=== PATIENT | male | born 1955 | race African-American/Black ===

== ENCOUNTER → 2025-03-14 13:02 | Outpatient (REF) | payer OTHER, SELFPAY | LOC: RAD 13:02 | PROVIDERS: ATTENDING PHYSICIAN Nurse Practitioner Adult Health; FAMILY PHYSICIAN Family Medicine | DX: Z43.1 Encounter for attention to gastrostomy (principal); R13.12 Dysphagia, oropharyngeal phase | CPT/HCPCS: 49465 ==

== ENCOUNTER 2025-03-25 13:07 | Emergency (ER) | payer OTHER, SELFPAY ==
--- NOTE | 2025-03-25 13:43 | EDRN ---
Pt was supposed to go to GI office in [place] and since here Maria Ambriz w/ [facility] came over and given a 20 Fr GT w/ 20 Ml bulb at this time and attempting to replace G tube at this time.
[2025-03-25 13:45] VITALS: BP 159/85
--- NOTE | 2025-03-25 13:46 | EDRN ---
Maria Ambriz FLOOR INSTALLATION MECHANIC unable to replace G tube so Fabiana AVILA attempting to get an appt w/ [facility].
--- NOTE | 2025-03-25 13:54 | CON.GI ---
Consultation
-
Date/Time Consultation Requested: 03/25/25 134
Date/Time Consultation Performed: 03/25/251344
Requesting Provider: ER
Performing Provider: JEREMIAS Nava
Reason for Consultation: accidential peg removal
Medical History
Chief Complaint / HPI
History of Present Illness:
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
depression, RBBB, anemia, epilepsy, hyperlipidemia,�� and chronic dysphagia with trach and peg placed at [facility].� �Pt with recent visit 03/14 with peg falling out.� �Tube was replaced� to 20french with #20 ml balloon.� �Facility called
again this week as pt pulled out again.�He was due to come to GI office and was sent to ER and noted with temporary lopez out of place. Asked to see for replacement. No other GI issues. I had attempted to call family several times prior to visit
to review and unable to reach. Aid from Facility with patient.
11/19/24- surgical open peg-- prior Endoscopic peg 10/25 with dislodgement to colon 11/02� healed on own then 11/19/24- separate GT stide new gastrostomy # 20 armenian kangaroo tube. stomach stammed up to abdominal wall� feeding tube placed at 4 cm at skin
Past Medical History
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
depression, RBBB, anemia, epilepsy, hyperlipidemia,�� and chronic dysphagia )
Social History
Tobacco: Other (unknown )
Alcohol: Other (unknown )
Living: Penitentiary
Employment: Retired
Family History
Family History: Unable to Obtain
Allergies / Home Medications
Allergy/AdvReac Type Severity Reaction Status Date / Time
No Known Allergies Allergy Unverified 03/25/25 13:12
Review of Systems
-
Unable to obtain full review of systems at this time due to: Other (unable to reach family last 2 days )
History Source: Patient and Other (aid at bedside )
EENT: Reports No Symptoms
Respiratory: Reports No Symptoms
Cardiac: Reports No Symptoms
Abdomen/GI: Reports Other (peg accidential removal )
: Reports No Symptoms
Musculoskeletal: Reports No Symptoms
Skin: Reports No Symptoms
Neurological: Reports Other (occasional aggitation with pulling at tube)
Endocrine: Reports No Symptoms
Hematologic/Lymphatic: Reports No Symptoms
Vital Signs
Temp Pulse Resp BP Pulse Ox
98.2 F 90 16 159/85 100
03/25/25 13:45 03/25/25 13:45 03/25/25 13:45 03/25/25 13:45 03/25/25 13:45
Physical Exam
Exam
General: Well Developed, Well Nourished and No Apparent Distress
HEENT: Normocephalic and Anicteric
Respiratory: Clear
Cardiac: Regular Rhythm
GI: Soft, Non Tender, Non Distended and Other (peg out with no lopez in place )
Musculoskeletal: No Clubbing and No Cyanosis
Skin: Warm and Dry
Neuro: Other (confused, hemiplegia )
Psych: Calm
Results
Diagnostic Image Results:
tube check 03/14
IMPRESSION: Gastrostomy tube injection yields contrast within the stomach and duodenum, with no evidence for contrast extravasation.
Assessment / Plan
-
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
RBBB, anemia, epilepsy, hyperlipidemia,�� and chronic dysphagia with trach and peg placed at [facility].� �Pt with recent visit 03/14 with peg falling out.� �Tube was replaced� to 20french with #20 ml balloon.� �Facility called again this
week as pt pulled out again.�He was due to come to GI office and was sent to ER and noted with temporary lopez out of place. Asked to see for replacement. No other GI issues. I had attempted to call family several times prior to visit to review
and unable to reach. Aid from Facility with patient.
peg displacement
hx prior peg displacement 03/14
PLAN:
pt was due to be seen in office but now noted with no temporary replacement tube in place
I attempted to replace with #20 armenian tube at bedside without luck
reviewed with ER to contact IR to see if they can dilate tract to replace tube
multiple attempt to review with family prior and unable to reach w
will need abd binder to prevent pt from pulling at tube
-
-
Thank you for consultation and allowing me to participate in the patient's care. Please call the livestock nutritionist GI physician during the after hours with any questions or concerns.
--- NOTE | 2025-03-25 13:57 | ED.GENMED ---
History of Present Illness
General
Chief Complaint: Catheter/Tube Problem
Source: patient
Exam Limitations: none
Time Seen by Provider: 03/25/25 13:20
Nursing documentation reviewed up to this point in time: agreed with
History of Present Illness
History of Present Illness:
Patient is a 70-year-old male with multiple chronic medical conditions who presents to the emergency department for G-tube replacement. Patient unable to contribute to history. According to nursing staff�patient pulled his G-tube out yesterday and
it was replaced with a Ramos catheter. Today, at morning rounds�the Ramos was still in place however at some point in the midmorning the Ramos tube came out. He was sent to the emergency department for G-tube replacement.
No other concerns today.
Review of Systems
Review of Systems
Allergies reviewed?: Yes
All Other Systems: ROS reviewed and negative except as documented in HPI and ROS
Phy Exam
Physical Exam
Physical Exam:
Vitals: Hypertensive, otherwise vital signs stable. Afebrile
General: Patient is chronically ill-appearing
Skin: Warm and dry, no rashes or lesions
Head: Normocephalic, atraumatic
Throat: Protecting airway
Neck: Normal ROM, no cervical spine tenderness
Cardiac: Regular rate
Pulm: No apparent respiratory distress
Abdomen: Soft and nontender. G-tube site without surrounding erythema or drainage. No significant tenderness
Extremities: Contracted right upper extremity
Neuro: Grossly intact
Psychiatric: Normal affect.
Course
Orders/Labs/Results
Orders:
Orders
03/25/25 14:16
Consult Interventional Radiology [[facility] CONSULT] Urgent
Consulting Provider: Bo Magallon
Was physician already notified: Yes
Procedure being ordered, including laterality if applicable: G tube replacement
Acknowledgement that appropriate orders are entered: Yes
Vital Signs
Initial and Last Documented VS:
Initial Vital Signs
Temp Pulse Resp BP Pulse Ox
98.2 F 90 16 159/85 100
03/25/25 13:45 03/25/25 13:45 03/25/25 13:45 03/25/25 13:45 03/25/25 13:45
Last Documented Vital Signs
Temp Pulse Resp BP Pulse Ox
98.2 F 90 16 159/85 100
03/25/25 13:45 03/25/25 13:45 03/25/25 13:45 03/25/25 13:45 03/25/25 13:59
MDM/Problems Addressed
Differential Diagnosis Includes:
Not limited to: Dislodged G-tube, etc.
MDM/Problems Addressed:
70 year old male presenting from nursing facility w/ dislodged g-tube. It is unclear how long g-tube has been out. Vitals and physical exam as above. G-tube site without any significant surrounding erythema or drainage.
Multiple attempts made to replace g-tube with 20 bruneian by myself and GI team in ED without success. Will discuss with IR.
Update: Patient had successful g-tube replacement in IR under flouroscopy. Stable for discharge back to facility with continued GI follow-up outpatient.
Chronic conditions affecting care:
N/A
Acute Exacerbation and/or Progression of Chronic Illness:
N/A
*Pulse Oximetry
SaO2: 100
Oxygen Mode of Delivery: Room air
Patient hypoxic: no
*EKG
Interpreted by ED Provider?: NA
*Family Literacy Coordinator Interpretation
Rate: Family Literacy Coordinator- N/A
*Critical Care Note
Total Time (30-74mins, 75-104mins- exclusive of procedures): Not Applicable
Patient Management
Discussion with other providers: Milking Machine Operator (Case discussed with gastroenterology and interventional radiology)
ED Attending Note
-
Portions of this chart may have been created with voice recognition software.� Occasional wrong word or��sound alike� substitutions may have occurred due to the inherent limitations of voice recognition software.
Discharge Plan
Departure
Patient Disposition: Home (Routine Discharge)
Date of Disposition: 03/25/25
Time of Disposition: 15:55
Patient with high blood pressure during this ER visit?: Yes
Condition: Good
Discharge Problem:
Dislodged gastrostomy tube
Instructions: How to Care for Your Gastrostomy Tube, BLOOD PRESSURE
Referrals:
Irma Rodriguez, DO [Family Provider]
Activity Restrictions/Additional Instructions:
RETURN TO THE EMERGENCY DEPARTMENT WITH ANY FEVERS, SIGNIFICANT REDNESS OR DRAINAGE AROUND G-TUBE SITE, DISLODGED G-TUBE, OR ANY OTHER CONCERNS r
-The patient's G-tube was replaced today with interventional radiology.
-Please continue to use abdominal binder to prevent patient pulling G-tube. Continue to follow-up with GI as directed.
Interventions
Interventions:
*Risk Screen - Suicide Last Done: 03/25/25 13:29
*General Assessment Last Done: 03/25/25 13:29
*Neglect/Abuse Screening Last Done: 03/25/25 13:29
*ED COVID-19 Vaccine History Last Done: 03/25/25 13:44
*ED Influenza Vaccine History Last Done: 03/25/25 13:44
[facility] Fall Risk Assessment Tool Last Done: 03/25/25 13:45
*Nursing Disposition Last Done: 03/25/25 16:02
PC-Xjququ-Tflvbuhfvr Assessment Last Done: 03/25/25 13:30
ED-Male Genitourinary Assessment Last Done: 03/25/25 13:30
Discharge Date and Time
Discharge Date/Time: 03/25/25 16:03
Print Language: SAMI
--- NOTE | 2025-03-25 14:25 | EDRN ---
IV VAT RN down and checked IV access in L upper arm and affirmed access is okay to use.
--- NOTE | 2025-03-25 15:47 | EDRN ---
IR was able to place the 20 FR G tube w/ 20 mL bulb at this time. Wade AVILA informed at this time.
== END 2025-03-25 16:03 | disposition home or self-care (01) ==
LOC: EMR 13:07
PROVIDERS: CONSULT PHYSICIAN Radiology Diagnostic Radiology; EMERGENCY PHYSICIAN Emergency Medicine; FAMILY PHYSICIAN Family Medicine
DX: Z43.1 Encounter for attention to gastrostomy (principal); E78.00 Pure hypercholesterolemia, unspecified; I10 Essential (primary) hypertension; Z86.73 Personal history of transient ischemic attack (TIA), and cerebral infarction without residual deficits; G40.909 Epilepsy, unspecified, not intractable, without status epilepticus; Z87.01 Personal history of pneumonia (recurrent); Z87.440 Personal history of urinary (tract) infections; Z90.79 Acquired absence of other genital organ(s)
CPT/HCPCS: 99283; 49450